=== PATIENT | female | born 1965 | race Caucasian/White ===

== ENCOUNTER → 2017-12-17 09:07 | Outpatient (CLI) | payer OTHER, SELFPAY ==
--- NOTE | 2017-12-17 09:17 | DI.REPORT_ITS ---
SYMPTOM/DIAGNOSIS: F/U LEFT ANKLE FRACTURE LEFT ANKLE: Comparison is made with 03 December 2017. There has been no change in the alignment of the previously noted distal fibular fracture. Ankle mortise remains intact. No talar dome defect is seen. IMPRESSION: Stable appearance of distal fibular fracture.
== END ==
PROVIDERS: PCP Legal Medicine; Visit Provider Orthopaedic Surgery
DX: S82.65XD Nondisplaced fracture of lateral malleolus of left fibula, subsequent encounter for closed fracture with routine healing (principal); X50.9XXD Other and unspecified overexertion or strenuous movements or postures, subsequent encounter; W17.2XXD Fall into hole, subsequent encounter; Y93.K9 Activity, other involving animal care
CPT/HCPCS: 73610

== ENCOUNTER 2018-10-18 00:35 | Outpatient (CLI) | payer OTHER, SELFPAY ==
--- NOTE | 2018-10-18 08:50 | DI.MAMMO_ITS ---
SYMPTOM/DIAGNOSIS: SCREENING, Z12.31 MAMMOGRAMS: Mammograms were interpreted according to the usual protocol including computer analysis with CAD system, tomosynthesis and C view imaging. The breasts are heterogeneously dense. No dominant mass or clumped microcalcification is identified in either breast. The current examination is compared with previous examinations including 09/2017 and there has been no gross interval change in appearance in comparison with the previous studies. CONCLUSION: No specific evidence of malignancy at this time. Routine screening examinations are suggested at yearly intervals in this age group according to the ACS/ACR guidelines. Category 1. Breast density, Category C. MQSA ASSESSMENT OF FINDINGS: Negative. Category 1. Patient will receive a letter notifying them of these results. Bi-RADS category C. The breasts are heterogeneously dense, which may obscure small masses.
== END 2018-10-18 00:55 ==
PROVIDERS: PCP Family Medicine; Visit Provider Legal Medicine
DX: Z12.31 Encounter for screening mammogram for malignant neoplasm of breast (principal)
CPT/HCPCS: 77063; 77067

== ENCOUNTER 2018-12-20 07:54 | Outpatient (CLI) | payer OTHER, SELFPAY ==
[2018-12-20 09:26] LABS: ALT 20 U/L (12-78); AST 16 U/L (15-37); Albumin 3.5 g/dL (3.4-5.0); Alkaline Phosphatase 75 U/L (46-116); Anion Gap 8.8 mmol/L (3-11); BUN 17 mg/dL (7-18); Bilirubin, Total 0.4 mg/dL (0.2-1.0); CO2 28.2 mmol/L (21.0-32.0); CREATININE 0.63 mg/dL (0.55-1.02); Calcium 8.3 mg/dL (8.5-10.1); Calculated LDL 200 mg/dL; Chloride 104 mmol/L (98-107); Cholesterol 277 mg/dL (50-200); Glucose 88 mg/dL (70-100); HDL Cholesterol 59 mg/dL (40-60); Sodium 141 mmol/L (136-145); TSH 0.62 uIU/mL (0.36-3.74); Triglyceride 91 mg/dL (30-150)
== END 2018-12-20 08:14 ==
PROVIDERS: PCP Family Medicine; Visit Provider Family Medicine
DX: E78.5 Hyperlipidemia, unspecified (principal); E03.9 Hypothyroidism, unspecified
CPT/HCPCS: 36415; 80053; 80061; 83721; 84443

== ENCOUNTER 2019-05-24 15:05 | Outpatient (CLI) | payer OTHER, SELFPAY ==
--- NOTE | 2019-05-24 12:26 | DI.RAD_ITS ---
EXAM: XR SHOULDER RT COMPLETE 2+V INDICATION: R shoulder pain after fall, M25.511, W19.XXXA. COMPARISON: No exams were available for comparison TECHNIQUE: 2D digital imaging was performed. FINDINGS: No fracture or dislocation is seen. There is minimal spurring at the AC joint and glenoid. A small subchondral cyst is seen in the humeral head. No tendon or joint space calcifications are seen. IMPRESSION: Minimal degenerative changes.
== END 2019-05-24 15:25 ==
PROVIDERS: PCP Family Medicine; Visit Provider Family Medicine
DX: M25.511 Pain in right shoulder (principal); W19.XXXA Unspecified fall, initial encounter; M19.011 Primary osteoarthritis, right shoulder; M85.40 Solitary bone cyst, unspecified site
CPT/HCPCS: 73030

== ENCOUNTER 2020-01-18 09:49 | Outpatient (REF) | payer OTHER, SELFPAY ==
[2020-01-18 08:13] LABS: ALT 22 U/L (14-59); AST 18 U/L (15-37); Albumin 3.7 g/dL (3.4-5.0); Alkaline Phosphatase 83 U/L (46-116); Anion Gap 5.6 mmol/L (3-11); BUN 14 mg/dL (7-18); Bilirubin, Total 0.5 mg/dL (0.2-1.0); CO2 30.4 mmol/L (21.0-32.0); CREATININE 0.69 mg/dL (0.55-1.02); Calcium 8.5 mg/dL (8.5-10.1); Calculated LDL 225 mg/dL (<100); Chloride 101 mmol/L (98-107); Cholesterol 310 mg/dL (<200); Glucose 92 mg/dL (74-106); HDL Cholesterol 59 mg/dL (40-60); Potassium 3.8 mmol/L (3.5-5.1); Sodium 137 mmol/L (136-145); TSH 0.94 uIU/mL (0.36-3.74); Total Protein 7.9 g/dL (6.4-8.2); Triglyceride 134 mg/dL (<150)
== END 2020-01-18 10:09 ==
LOC: LBN 09:49
PROVIDERS: PCP Family Medicine; Visit Provider Family Medicine
DX: Z00.00 Encounter for general adult medical examination without abnormal findings (principal); E03.9 Hypothyroidism, unspecified; E78.00 Pure hypercholesterolemia, unspecified
CPT/HCPCS: 80053; 80061; 84443

== ENCOUNTER 2020-08-16 07:54 | Emergency (ER) | payer OTHER, SELFPAY ==
[2020-08-16] VITALS (17 sets, daily range): BP systolic 102–127; BP diastolic 53–103; PULSE 73–97; RESP 11–24; TEMP 36.4; O2SAT 97–100
--- NOTE | 2020-08-16 08:15 | RT.EKG_ITS ---
APPROVED REPORT Exam: Resting ECG Patient Location: E HR:80 bpm ECG Measurements Heart Rate 80 AXIS SC 173 P 25 QRSd 79 QRS 57 QT 382 T 32 QTc 439 Conclusion Sinus rhythm...normal P axis, V-rate 60- 99
--- NOTE | 2020-08-16 08:15 | DI.RAD_ITS ---
EXAM: XR PORTABLE CHEST AP CLINICAL HISTORY: shortness of breath. TECHNIQUE: 2D digital imaging was performed. COMPARISON: No exams were available for comparison FINDINGS: Heart size is normal. The mediastinum is not widened. Lungs are clear. No infiltrates nor obvious pleural effusions. Chest leads in place IMPRESSION: No acute pulmonary findings on this single AP portable view of the chest. DATA REPOSITORY: RADIATION DOSE DELIVERED: All CT scans at this facility use at least one of these dose optimization techniques: automated exposure control; mA and/or kV adjustment per patient size (includes targeted e xams where dose is matched to clinical indication); or iterative reconstruction.
--- NOTE | 2020-08-16 08:35 | W.ED.GENAD ---
Discharge Plan Disposition Patient Disposition: HOME Condition: Good Discharge Details Clinical Impression: Dyspnea Primary Care Provider: Tadeo Muir ED Provider: Charito Tirado Home Meds and New Rx's Prescriptions: Continued citalopram 40 mg tablet 40 mg PO DAILY Qty: 90 RF: 3 lorazepam 0.5 mg tablet 0.5 mg PO PRN PRN (Reason: acute anxiety) Qty: 30 RF: 3 valacyclovir 500 mg tablet 500 mg PO DAILY Qty: 90 RF: 3 cholecalciferol (vitamin D3) 3,000 unit tablet 5,000 unit PO DAILY RF: 0 loratadine [Claritin Liqui-Gel] 10 MG capsule 10 mg PO PRN PRNRF: 0 estradiol 1 mg tablet 1 mg PO DAILY Qty: 90 RF: 3 levothyroxine 88 mcg tablet 88 mcg PO DAILY Qty: 102 RF: 3 Denavir 1 % cream 1 applic topical Q2H 4 Days Qty: 5 RF: 5 Discharge Instructions Instructions: Dyspnea (ED) Additional Instructions: Follow-up with pcp to schedule stress test at their discretion return earlier with new or worsening complaints isolate until the results of your covid test returns return earlier with new or worsening complaints Stand Alone Forms: PENDING COVID-19 TESTING, Work Release Discharge Data Discharge Date/Time-TO BE ENTERED AT DEPARTURE: 08/16/20 11:22 Medical Decision Making Troponin negative, D-dimer negative, BNP negative, chest x-ray without acute pathology Patient resting comfortably in room As she has had the pain for greater than 24 hours, I will not check an additional troponin at this time EKG does not show acute pathology Given the threshold to return with new or worsening complaints Heart score of 2, the patient is relatively low risk Discharge home in stable condition with stable vitals, abdomen completely nontender, urinalysis does not show acute pathology. Oxygenation 100% at room air, pulse 78, blood pressure 120/84 at time of discharge Recommend outpatient stress echocardiogram at the discretion of patient's provider Differential Diagnosis Differential Diagnosis: Angina, myocardial infarctions, pulmonary embolism, COVID-19 Medical Records Medical records reviewed: Yes I reviewed the patient's medical records. Lab Data Lab results reviewed: Yes I reviewed the patient's lab results. HPI This 55-year-old female presents with shortness of breath and chest tightness yesterday afternoon. Patient denies prior history of similar symptoms in the past. She denies any fever or chills. She denies any dizziness or weakness. She denies any nausea or vomiting. She denies cough or known sick contacts. She denies any calf pain or swelling, history of coagulopathy General Date/Time Provider Initiated Documentation: 08/16/20 07:56. Related Data Home Medications Medication Instructions Recorded Confirmed loratadine [Claritin Liqui-Gel] 10 mg PO PRN PRN NS 03/22/14 06/06/20 cholecalciferol (vitamin D3) 75 5,000 unit PO DAILY tab 05/23/19 08/16/20 mcg (3,000 unit) tablet estradiol 1 mg tablet 1 mg PO DAILY #90 tab-cap NS 11/16/19 08/16/20 levothyroxine 88 mcg tablet 88 mcg PO DAILY #102 tab 12/26/19 08/16/20 valacyclovir 500 mg tablet 500 mg PO DAILY #90 tab-cap NS 01/17/20 08/16/20 penciclovir 1 % topical cream 1 applic TOPICAL Q2H 4 Days #5 g 04/16/20 08/16/20 citalopram 40 mg tablet 40 mg PO DAILY #90 tab-cap 06/06/20 08/16/20 lorazepam 0.5 mg tablet 0.5 mg PO PRN PRN #30 tab NS 06/06/20 08/16/20 Previous Rx's Medication Instructions Recorded estradiol 1 mg tablet 1 mg PO DAILY #90 tab-cap NS 11/16/19 levothyroxine 88 mcg tablet 88 mcg PO DAILY #102 tab 12/26/19 valacyclovir 500 mg tablet 500 mg PO DAILY #90 tab-cap NS 01/17/20 penciclovir 1 % topical cream 1 applic TOPICAL Q2H 4 Days #5 g 04/16/20 citalopram 40 mg tablet 40 mg PO DAILY #90 tab-cap 06/06/20 lorazepam 0.5 mg tablet 0.5 mg PO PRN PRN #30 tab NS 06/06/20 Allergies Allergy/AdvReac Type Severity Reaction Status Date / Time amoxicillin [Amoxicillin] Allergy Verified 08/16/20 08:08 sulfamethoxazole Allergy Verified 08/16/20 08:08 [From Bactrim] trimethoprim [From Bactrim] Allergy Verified 08/16/20 08:08 codeine AdvReac Intermediate Diarrhea Verified 08/16/20 08:08 General Stated Complaint: Abd Prob GURMEET: 3 Review of Systems Narrative: Review of systems obtained x7 aside from where indicated in HPI [facility] Medical History (Updated 08/16/20 @ 10:26 by ROS Loco) Anxiety with depression Endometriosis 11/21 Hypothyroidism Leukoplakia of gingiva Migraine Pure hypercholesterolemia Shingles 2006 Surgical History (Updated 11/30/18 @ 09:13 by Laurence Lambert) S/P MITRA-BSO 11/21 Family History (Updated 11/30/18 @ 09:16 by Laurence Lambert) Mother , 75 Stroke Diabetes Heart disease Hyperlipidemia Father , AGE 98 Stroke Heart disease Heart attack stents age 90;pacemaker Sister No problems noted. Sister Melanoma Scleroderma Brother , 54 Pancreatic cancer Brother No problems noted. Brother No problems noted. Brother No problems noted. Maternal Grandfather No problems noted. Paternal Grandfather No problems noted. Social History (Updated 01/18/20 @ 17:44 by Maite Antonio) Smoking/Tobacco Use Status: Never Second Hand Exposure: Yes Smoking risk assessment performed?: Yes Alcohol Intake: current Alcohol Intake frequency: a few times a month Alcohol type: beer, wine and hard liquor Drug use: Never Substance use type: does not use Caregiver/Support person: No Household members: spouse Housing: house Do you need help understanding health information?: Never Pets and animals: Yes Pets and animals: dog(s) Sexually active: No Do you think of yourself as: straight/heterosexual Current gender identity: female and decline to answer What is your relationship status?: How often do you talk on the phone with friends or family?: three or more times per week How often do you attend zoroastrian or sabianism services?: decline to answer Do you belong to any clubs or organized social groups?: decline to answer Panel score (0-1 are the most socially isolated patients): 2 What type of physical activity do you participate in: none [place]/Hoahaoism: Hoahaoism Seatbelt use: always Helmet use: Yes Helmet use: always Drive intox or ride w/intox front end driver: No Do you feel safe at home: Yes Do you feel safe in your relationship?: Yes Exam Const General: cooperative, comfortable and no acute distress Neck Neck: no JVD Chest Chest: normal inspection of the chest Resp Effort & Inspection: normal respiratory effort Auscultation: clear to auscultation bilaterally Cardio Rate: regular rate Rhythm: regular rhythm Heart Sounds: no murmurs GI Inspection: normal to inspection Percussion: normal to percussion Other: No tenderness to palpation No CVA tenderness Skin General skin exam: no rashes or lesions noted Neuro General: patient alert and patient oriented x3 Extrem Other: Neurovascularly intact, no calf tenderness or swelling Course Vital Signs Vital signs: Vital Signs Temperature 36.4 C L 08/16/20 08:03 Pulse 94 H 08/16/20 08:03 Respiratory Rate 18 08/16/20 08:03 Blood Pressure 127/103 H 08/16/20 08:03 Pulse Oximetry 99 08/16/20 08:03 Temperature 36.4 C L 08/16/20 08:03 Temperature Source Temporal Artery Scan 08/16/20 08:03 Pulse 94 H 08/16/20 08:03 Respiratory Rate 18 08/16/20 08:03 Respiratory Effort Non-Labored 08/16/20 08:10 Blood Pressure 127/103 H 08/16/20 08:03 Blood Pressure Position Supine 08/16/20 08:03 Pulse Oximetry 99 08/16/20 08:03 Oxygen Delivery Method Room Air 08/16/20 08:03 Oxygen Flow Rate 0 08/16/20 08:03 Pain Level 6 08/16/20 08:03
[2020-08-16 08:45] LABS: Absolute Basophil Count 0.03 10^3/uL (0.0-0.2); Absolute Eosinophil Count 0.17 10^3/uL (0.0-0.7); Absolute Lymphocyte Count 1.08 10^3/uL (1.2-3.4); Absolute Monocyte Count 0.32 10^3/uL (0.1-0.8); Absolute Neutrophil Count 2.79 10^3/uL (1.2-6.7); Basophils % 0.7; Eosinophils % 3.9; HCT 42.6 % (36.0-46.0); HGB 14.1 g/dL (11.2-15.7); Lymphocytes % 24.6; MCH 31.5 pg (27.0-33.0); MCHC 33.1 % (32.0-36.0); MCV 95.3 fL (80-95); MPV 9.7 fL (8.0-11.0); Monocytes % 7.3; Neutrophils % 63.5; Nucleated RBC 0 %; Platelet Count 226 10^3/uL (130-400); RBC 4.47 10^6/uL (3.93-5.22); RDW 12.4 % (11.7-14.6); RDW-SD 44.1 fL; WBC 4.39 10^3/uL (4.4-10.8)
[2020-08-16 09:05] LABS: ALT 18 U/L (14-59); AST 13 U/L (15-37); Albumin 3.7 g/dL (3.4-5.0); Alkaline Phosphatase 76 U/L (46-116); Anion Gap 6.6 mmol/L (3-11); BUN 18 mg/dL (7-18); Bilirubin, Total 0.5 mg/dL (0.2-1.0); CO2 29.4 mmol/L (21.0-32.0); CREATININE 0.8 mg/dL (0.55-1.02); Chloride 104 mmol/L (98-107); Glucose 91 mg/dL (74-106); NT-proBNP 48 pg/mL (<300); Potassium 3.9 mmol/L (3.5-5.1); Sodium 140 mmol/L (136-145); Total Protein 7.9 g/dL (6.4-8.2); Troponin I < 0.05 ng/mL (<0.06)
[2020-08-16 09:23] LABS: D-Dimer 441 ng/mlFEU (<500)
[2020-08-16 09:42] LABS: Bilirubin Negative (Negative); Blood Negative (Negative); Clarity Clear (Clear); Glucose Negative (Negative); Ketones Negative (Negative); Leukocyte Esterase Negative (Negative); Nitrite Negative (Negative); Specific Gravity 1.015 (1.005-1.025); Urobilinogen 0.2 EU/dL (Up TO 0.2)
[2020-08-17 14:35] LABS: COVID-19 RT-PCR UVMMC Result Negative (Negative)
== END 2020-08-16 11:22 | disposition home or self-care (01) ==
PROVIDERS: Emergency Provider Physician Assistant; PCP Family Medicine
DX: R06.00 Dyspnea, unspecified (principal); R07.89 Other chest pain; Z20.822 Contact with and (suspected) exposure to COVID-19
CPT/HCPCS: 80053; 93005; 99284; U0003; 71045; 81003; 83880; 84484; 85025; 85379; 93010; 99283

== ENCOUNTER 2020-11-14 11:18 | Outpatient (CLI) | payer OTHER, SELFPAY ==
--- NOTE | 2020-11-14 11:00 | DI.RAD_ITS ---
Exam(s) XR ANKLE LT COMPLETE EXAM: XR ANKLE LT COMPLETE CLINICAL HISTORY: Pain, rolled ankle, previous closed nondisplaced fracture, S82.65XD. TECHNIQUE: 2D digital imaging was performed. COMPARISON: CR LEFT ANKLE COMPLETE from 12/17/2017 FINDINGS: The oblique fracture site in the distal fibula appears healed. No displacement. No widening of the mortise. Bone density is normal. On the AP view there is a small calcification measuring 2 x 1.5 millimeters adjacent to the inner asp ect of the lateral malleolus, not evident on the prior study. This may be an avulsion injury but the re is no overlying soft tissue swelling. Therefore possibly an accessory ossicle. No degenerative changes in the ankle and subtalar joints evident. No osseous tarsal coalition eviden t. Moderate size inferior calcaneal spur is noted. There is no calcification in the plantar fascia. IMPRESSION: DATA REPOSITORY: RADIATION DOSE DELIVERED:
== END 2020-11-14 11:38 ==
PROVIDERS: PCP Nurse Practitioner Family; Visit Provider Nurse Practitioner Family
DX: S82.65XD Nondisplaced fracture of lateral malleolus of left fibula, subsequent encounter for closed fracture with routine healing (principal); X58.XXXD Exposure to other specified factors, subsequent encounter
CPT/HCPCS: 73610

== ENCOUNTER 2020-12-21 14:36 | Outpatient (REF) | payer OTHER, SELFPAY ==
[2020-12-21 09:20] LABS: TSH 2.77 uIU/mL (0.36-3.74)
== END 2020-12-21 14:37 | disposition home or self-care (01) ==
LOC: LBN 14:36
PROVIDERS: PCP Nurse Practitioner Family; Visit Provider Nurse Practitioner Family
DX: E03.9 Hypothyroidism, unspecified (principal)
CPT/HCPCS: 84443

== ENCOUNTER 2021-01-22 03:44 | Outpatient (CLI) | payer OTHER, SELFPAY ==
[2021-01-22 10:08] LABS: Source Nasal/Nares
[2021-01-22 13:25] LABS: COVID-19 PCR Negative (Negative)
== END 2021-01-22 03:45 | disposition home or self-care (01) ==
LOC: LBO 03:44
PROVIDERS: PCP Nurse Practitioner Family; Visit Provider Student in an Organized Health Care Education/Training Program
DX: Z20.822 Contact with and (suspected) exposure to COVID-19 (principal); Z01.818 Encounter for other preprocedural examination
CPT/HCPCS: 87635

== ENCOUNTER 2021-01-23 09:49 | Day surgery (SDC) | payer OTHER, SELFPAY ==
[2021-01-23 10:09] VITALS: BP 112/78; PULSE 84; RESP 16; TEMP 36.2; O2SAT 97
[2021-01-23] MEDS: Lactated Ringers 1,000 ML 80 ML IV (10:29)
--- NOTE | 2021-01-23 12:07 | PDOC.DSDIS_ITS ---
Discharge Plan Disposition Patient Disposition: HOME Condition: Good Discharge Details Reason For Visit: Dupuytren's Release R hand Attending Provider: Gerard Cevallos Primary Care Provider: Dean Musa Home Meds and New Rx's Prescriptions: New ibuprofen 600 mg tablet 600 mg PO TID PRN (Reason: pain) Qty: 90 RF: 0 acetaminophen 500 mg capsule 1,000 mg PO Q8H PRN PRNQty: 90 RF: 0 Continued citalopram 40 mg tablet 40 mg PO DAILY Qty: 90 RF: 3 lorazepam 0.5 mg tablet 0.5 mg PO PRN PRN (Reason: acute anxiety) Qty: 30 RF: 3 valacyclovir 500 mg tablet 500 mg PO DAILY Qty: 90 RF: 3 cholecalciferol (vitamin D3) 3,000 unit tablet 5,000 unit PO DAILY RF: 0 loratadine [Claritin Liqui-Gel] 10 MG capsule 10 mg PO PRN PRNRF: 0 Denavir 1 % cream 1 applic topical Q2H 4 Days Qty: 5 RF: 5 estradiol 1 mg tablet 1 mg PO DAILY Qty: 90 RF: 3 levothyroxine 88 mcg tablet 88 mcg PO DAILY Qty: 102 RF: 3 Discharge Instructions Additional Instructions: Dupuytren's Contracture Discharge Instructions Activity: You may use your fingers for light activity. You should limit any excessive motion or forceful gripping until the sutures have been removed. Dressings: You should keep the initial surgical dressing in place for at least 3 days. You may remove your dressings and get the wound wet after 3 days. You should keep the dressings and the wound clean at all times. You may keep the initial dressing in place until your follow-up but keep the wound covered with light gauze until the sutures are removed. Medications: - You should take Tylenol and Ibuprofen around the clock as prescribed or per automotive mechanical engineer's recommendations. Follow-up: 7-10 days for wound check and suture removal. Remove Dressings/Wound Care:: 72 hours Shower/Bathe:: 72 hours Discharge Orders Discharge Orders: Discharge Order (Routine); Ordered 01/23/21 Ordered By: Candido Márquez DS: Diagnosis Discharge Diagnosis (1) Dupuytren's contracture of right hand: Status: Acute
[2021-01-23] MEDS: ceFAZolin 2,000 MG in Normal Saline 100 ML 200 MG IV (13:18)
[2021-01-23] MEDS: Sodium Bicarbonate 50 MEQ/50 ML VIAL (13:27)
[2021-01-23 13:53] VITALS: BP 107/74; PULSE 72; RESP 16; TEMP 36.4; O2SAT 98
--- NOTE | 2021-01-24 06:24 | ROE_ITS ---
Date of service: 01/23/21 Time of Service: 14:03 Operative Note Operative Note DATE OF PROCEDURE: 01/24/21 PRE-OP DIAGNOSIS: Right little finger Dupuytren's contracture POST-OP DIAGNOSIS: same PROCEDURE: Partial palmar fasciectomy of right palm and little finger SURGEON: Gerard Cevallos ANESTHESIA TYPE: Local By Surgeon Refer to Anesthesia Record ESTIMATED BLOOD LOSS: 5 PATHOLOGY: none sent TOURNIQUET TIME: 0 COMPLICATIONS: None Patient was transported to: same day Patient's condition: stable Indications: I have seen Jo in clinic for symptoms of Dupuytren's contracture primarily involving the little finger. She also has a disease of the ring finger but without any contracture and no significant symptoms. She had greater than 30 degrees of contracture at the PIP joint of the little finger which was interfering with her daily activities. Therefore, I offered partial palmar fasciectomy to remove the diseased cord. I reviewed the risks of the procedure to include, but not limited to, bleeding, infection, pain, stiffness, incomplete release, damage to nerves or vessels, recurrence. Despite these risks, the patient elected to proceed. Findings: There is a magallon cord extending from the palmar region of the MCP joint towards the PIP joint. It was easily identifiable and isolated and then removed. Neurovascular structures were not superficial to it and appear to be deep. No significant bleeding was encountered. Procedure Description: Jo was greeted in the preoperative holding area where the correct side was identified and marked. The consent was reviewed with the patient and signed. All questions were answered. Jo was taken back to the operating room. The patient was placed into the supine position on the operating room table with the right arm on an arm board. All bony prominences were well padded. Prophylactic antibiotics in the form of cefazolin were administered. The right arm was then prepped with Chloraprep and draped in a standard fashion with stockinette and extremity drape. A timeout to confirm correct identity, side and site, procedure, allergies, anesthesia, and medical concerns was performed. The surgical site was marked as a Carroll type incision over the ulnar border of the distal hand and the little finger extending across the MCP joint up to the PIP joint. This was confirmed with palpation to be centered along the diseased tissue. This area was then anesthetized with 1% Lidocaine with epinephrine and buffered with sodium bicarb. The patient tolerated this well and once the anesthetic had setup, the procedure began. The skin was incised sharply. Once the skin was incised blunt dissection was carried through with tenotomy scissor in line with the incision. Retraction was facilitated and blunt dissection carried down to the palpable cord. There were no crossing neurovascular structures identified. Bipolar cautery was utilized to cauterize superficial venous structures. No tourniquet was used. The cord identified gentle dissection was carried along the length of the cord. This dissection was first carried superficially pain close attention to any crossing neurovascular structures which were not encountered. I then used blunt diss ection to elevate tissues from the deep surface of the cord such as able to place a Chitina elevator underneath the cord. Once this was possible I moved as distal as possible and transected the cord. Immediately there was improvement with the finger motion. There is some remnant bands deep to this which were once again carefully dissected away. This cord was then held and followed proximally. He continued slightly deep but also still on the ulnar side of the little finger ray. This was then transected and disease tissue removed. At this point the finger had passively 2 to 3 degrees of hyperextension. Jo was able demonstrate active extension lacking about 5 degrees of terminal extension of the PIP joint, both improved from the preoperative setting. Given the improvement with the motion I did not perform any capsular release of the PIP joint. The neurovascular bundle was appreciated deep to the cord which was removed. The wound was then irrigated and the skin was closed with a 4-0 Nylon. This was dressed with gauze and a Conform dressing. The patient tolerated the procedure well and was returned to the Same Day Surgery area in a stable condition suffering no known complication.
== END 2021-01-23 14:08 | disposition home or self-care (01) ==
PROVIDERS: PCP Nurse Practitioner Family; Visit Provider Student in an Organized Health Care Education/Training Program
PROC: (CPT 26123; principal; 2021-01-23 12:45)
DX: M72.0 Palmar fascial fibromatosis [Dupuytren] (principal)
CPT/HCPCS: 26123; J0690

== ENCOUNTER 2021-02-27 03:38 | Outpatient (CLI) | payer OTHER, SELFPAY ==
[2021-02-27 19:10] LABS: COVID-19 RT-PCR UVMMC Result Negative (Negative)
== END 2021-02-27 03:39 | disposition home or self-care (01) ==
LOC: LBO 03:38
PROVIDERS: PCP Nurse Practitioner Family; Visit Provider Nurse Practitioner Family
DX: Z20.822 Contact with and (suspected) exposure to COVID-19 (principal)
CPT/HCPCS: U0003

== ENCOUNTER 2021-03-13 02:33 | Outpatient (CLI) | payer OTHER, SELFPAY ==
--- NOTE | 2021-03-13 08:30 | DI.MAMMO_ITS ---
Exam(s) MAMMO SCREENING EXAM: MAMMO SCREENING CLINICAL HISTORY: screening,Z12.39. TECHNIQUE: Bilateral full field digital CC and MLO mammographic images were obtained with 3D tomosyn thesis and utilizing computer aided detection (CAD). COMPARISON: Prior mammograms dating back to 2012, the most recent being October 2018. FINDINGS: Fibroglandular tissue pattern is again noted be moderately dense. No new obvious focal findings in the right breast. In the left breast there is a 3 x 4 millimeter asymmetric density-possible nodule slightly medial of center, approximately 2.5 cm in from the nipple on the CC view. No malignant-appearing microcalcification groups is region or elsewhere in either breast. There is no significant architectural distortion nor skin thickening-retraction. IMPRESSION: Moderately dense fibroglandular tissue. No radiographic evidence of malignancy in the right breast. Possible left breast nodule as described above. Spot compression views and ultrasound recommended. BI-RADS Category 0 - Assessment Incomplete: Need additional imaging evaluation Breast Density - Category C - Heterogeneously dense Breast density Category C or D implies that the patient has dense breast tissue. Dense breast tissue can make it harder to find cancer on a mammogram. Dense breast tissue is also associated with an incr eased risk of breast cancer. This information about the result of the mammogram report was provided to the patient to raise their awareness. Use this report when you speak with the patient about their risks for breast cancer, which includes their family history. At that time, you may recommend additional screening tests (Ultrasoun d or MRI) as these tests may add significant information. A negative radiographic report should not delay biopsy if a dominant or clinically suspicious mass is present. Up to ten percent of cancers are not identified on mammography. A negative report may reinforce clinical impression. Adenosis and dense breasts may obscure an underlying neoplasm. False positive reports average 6 to 10%. Patient will receive a letter notifying them of these results.
== END 2021-03-13 02:53 ==
PROVIDERS: PCP Nurse Practitioner Family; Visit Provider Nurse Practitioner Family
DX: Z12.31 Encounter for screening mammogram for malignant neoplasm of breast (principal); R92.8 Other abnormal and inconclusive findings on diagnostic imaging of breast
CPT/HCPCS: 77063; 77067

== ENCOUNTER 2021-04-03 01:00 | Outpatient (CLI) | payer OTHER, SELFPAY ==
--- NOTE | 2021-04-03 08:30 | DI.MAMMO_ITS ---
Exam(s) MG MAMMO SCREEN CALL BACK UNI US BREAST LT COMPLETE EXAM: MG MAMMO SCREEN CALL BACK UNI CLINICAL HISTORY: ASYMMETRIC DENSITY POSSIBLE NODULE LT BREAST TECHNIQUE: Mammograms were interpreted according to the usual protocol including computer analysis w ith CAD system, tomosynthesis and C-view imaging. COMPARISON: FINDINGS: Additional mammographic views of the left breast and left breast ultrasound were obtained to evaluate questionable area of nodularity seen in the retroareolar portion of the left breast on recent mammog maria luz. Additional mammographic views fail to show a discrete mass. Breast ultrasound shows no evidenc e of mass or cyst in the retroareolar portion of the breast. IMPRESSION: No specific evidence of malignancy at this time. Follow-up unilateral left breast mammogram recommen ded in 6 months. BI-RADS Category 3 - 6 month - Probably Benign Finding: Recommend follow-up mammography in 6 months Breast Density - Category C - Heterogeneously dense
== END 2021-04-03 01:20 ==
PROVIDERS: PCP Nurse Practitioner Family; Visit Provider Nurse Practitioner Family
DX: Z12.31 Encounter for screening mammogram for malignant neoplasm of breast (principal); R92.8 Other abnormal and inconclusive findings on diagnostic imaging of breast; N64.59 Other signs and symptoms in breast
CPT/HCPCS: 76642; 77063; 77067

== ENCOUNTER → 2021-11-22 00:12 | Outpatient (CLI) | payer OTHER, SELFPAY ==
--- NOTE | 2021-11-22 09:00 | DI.MAMMO_ITS ---
Exam(s) MG MAMMO DIAGNOSTIC UNI EXAM: MG MAMMO DIAGNOSTIC UNI CLINICAL HISTORY: f/u abnormal mammo, r92.8. TECHNIQUE: Craniocaudal and mediolateral oblique Full Field Digital Mammography views of the left br east with Computer Aided Diagnosis followed by Tomosynthesis. COMPARISON: MG Screening Bilat Mammo from 03/31/2014 MG Screening Bilat Mammo from 10/09/2016 MG Screening Bilat Mammo from 10/13/2017 MG MG mammo screening from 10/18/2018 MG MG MAMMO SCREEN CALL BACK UNI from 04/03/2021 US US BREAST LT COMPLETE from 04/03/2021 FINDINGS: Mammography/Tomosynthesis: Masses/Architectural Distortion: None seen. Microcalcifictions: No suspicious pleomorphic-type are seen. Skin Thickening/Nipple Retraction: None. IMPRESSION: 1. No evidence of malignancy is noted. 2. Unless there is more urgent need, bilateral screening mammography is recommended in 6 months. BI-RADS Category 1 - Negative Breast Density - Category C - Heterogeneously dense Breast density category C or D implies that the patient has dense breast tissue. Dense breast tissue is very common and is not abnormal but dense breast tissue can make it harder to find cancer on a ma mmogram. Also, dense breast tissue may increase their breast cancer risk. This information about the result of the mammogram report was provided to the patient to raise their awareness. Use this report when you speak with the patient about their risks for breast cancer, which includes their family hist ory. At that time, you may recommend for more screening tests (Ultrasound or MRI) as they might be us eful based on their risk. A negative radiographic report should not delay biopsy if a dominant or clinically suspicious mass is present. Up to ten percent of cancers are not identified on mammography. A negative report may reinforce clinical impression. Adenosis and dense breasts may obscure an underlying neoplasm. False positive reports average 6 to 10%. Patient will receive a letter notifying them of these results.
== END ==
PROVIDERS: PCP Nurse Practitioner Family; Visit Provider Nurse Practitioner Family
DX: R92.8 Other abnormal and inconclusive findings on diagnostic imaging of breast (principal)
CPT/HCPCS: 77061; 77065; G0279

== ENCOUNTER 2022-01-01 09:47 | Outpatient (REF) | payer OTHER, SELFPAY ==
[2022-01-01 10:27] LABS: Calculated LDL 193 mg/dL (<100); Cholesterol 269 mg/dL (<200); HDL Cholesterol 59 mg/dL (40-60); Triglyceride 85 mg/dL (<150)
[2022-01-01 10:31] LABS: Hemoglobin A1C 5.7 % (<5.7)
[2022-01-02 09:38] LABS: Lab Add On Test DONE
[2022-01-02 09:59] LABS: TSH (W/Ref FT4) 0.43 uIU/mL (0.36-3.74)
== END 2022-01-01 09:48 | disposition home or self-care (01) ==
LOC: LBN 09:47
PROVIDERS: PCP Nurse Practitioner Family; Visit Provider Nurse Practitioner Family
DX: Z13.1 Encounter for screening for diabetes mellitus (principal); Z13.220 Encounter for screening for lipoid disorders
CPT/HCPCS: 80061; 83036; 84443

== ENCOUNTER 2022-04-03 10:55 | Day surgery (SDC) | payer OTHER, SELFPAY ==
--- NOTE | 2022-04-02 16:03 | W.PM.DSUDISC ---
Date of service: 04/02/22 Time of Service: 13:51 Discharge Plan Disposition Patient Disposition: HOME Condition: Good Condition: Good Discharge Details Reason For Visit: Esophagogastroduodenoscopy Attending Provider: Luis Merrill Primary Care Provider: Dean Musa Home Meds and New Rx's Prescriptions: No Action red yeast rice 600 mg capsule 600 mg PO DAILY Qty: 90 3RF Rx Instructions: give with meal/snack cholecalciferol (vitamin D3) 3,000 unit tablet 5,000 unit PO DAILY Claritin Liqui-Gel 10 MG capsule 10 mg PO PRN PRN citalopram 40 mg tablet 40 mg PO DAILY Qty: 90 3RF estradiol 1 mg tablet 1 mg PO DAILY Qty: 90 3RF levothyroxine 88 mcg tablet 88 mcg PO DAILY Qty: 102 3RF Rx Instructions: 2 tabs on Sundays lorazepam 0.5 mg tablet 0.5 mg PO DAILY PRN (Reason: acute anxiety) Qty: 30 3RF valacyclovir 500 mg tablet 500 mg PO DAILY Qty: 90 0RF famotidine 20 mg tablet 20 mg PO BID Qty: 180 0RF ibuprofen 600 mg tablet 600 mg PO TID PRN (Reason: pain) Qty: 90 0RF acetaminophen 500 mg capsule 1,000 mg PO Q8H PRN PRNQty: 90 0RF Denavir 1 % cream 1 applic topical Q2H PRN Discharge Instructions Instructions: Gastritis (GEN) Additional Instructions: 1. If tolerated, consume a soft, low fiber diet for 1-2 days. [address] Do not drive, drink alcohol, operate machinery, make critical decisions, or do activities that require coordination or balance for 24 hours. 3. You may experience a sore throat for 24 to 48 hours. You may use throat lozenges or gargle with warm salt water to relieve the discomfort. 4. Because air was put into your stomach during the procedure, you may experience some belching. 5. Go directly to the emergency room if you notice any of the following: Develop chills (warm to touch), or if you have a thermometer and your temperature is above 101 Difficulty breathing or difficultly swallowing Persistent vomiting Severe abdominal pain, other than gas cramps Severe chest pain Black, tarry stools Any bleeding ? exceeding one tablespoon 6. Call your physician if the site where your intravenous was started becomes red, swollen, painful, and warm to touch. 7. Your physician has reviewed your pre-procedure medications. Please continue to take those medications as previously ordered. You will be given specific information/education regarding any changes to your medications before leaving. Activity:: Activity as Tolerated Diet:: As Tolerated DS: Diagnosis Discharge Diagnosis (1) Gastritis: Status: Acute Asessment and Plan: Keep taking the famitodine I will let you know the results of the biopsies
--- NOTE | 2022-04-02 16:05 | W.PM.ENDDOP ---
Date of service: 04/03/22 Time of Service: 13:53 Endoscopy Report DATE OF PROCEDURE: 04/03/22 PRE-OP DIAGNOSIS: Dysphagia POST-OP DIAGNOSIS: other (Gastritis) PROCEDURE: EGD SURGEON: Luis Merrill ANESTHESIA TYPE: General:No Airway ESTIMATED BLOOD LOSS: 10 PATHOLOGY: other (Gastric antrum, gastric polyp, gastric body) COMPLICATIONS: None DISPOSITION: same day INDICATIONS: Ceferino is a 57-year-old woman with coughing and a globus sensation when swallowing. PROCEDURE START TIME: 12:54 PROCEDURE END TIME: 13:05 FINDINGS: Mild antral gastritis, single gastric polyp, small area of gastric scarring PROCEDURE DESCRIPTION: After the initiation of monitored anesthetic care, and with the assistance of a bite block, I advanced a standard gastroscope through the mouth past the hypopharynx and into the esophagus.? Under the direct vision of the scope, I advanced down the esophagus into the stomach.? Once I entered the stomach, I performed a brief inspection, followed by retroflexion towards the gastric cardia.? This appeared normal.? After that, I gently advanced the scope around the incisura angularis and examined the pylorus.? There was some pre-pyloric antral gastritis.? Next, I advanced the scope through the pylorus into the duodenum.? The mucosa was pink and healthy appearing.? There were no abnormalities.? I was able to visualize bile draining into the duodenum through the ampulla Vater. ?Next, I began retracting the endoscope.? I brought the camera back into the stomach, I performed biopsies of the antral gastritis. I then carefully examined the rest of the gastric body and cardia. There was a single gastric polyp. Using cold forceps, I performed a polypectomy. There was no significant bleeding. Several centimeters adjacent to this, there was a small area of pale mucosa. The border was irregular. It had the appearance of scar tissue. I performed biopsies of this..? I then gently desufflated some of the stomach, and withdrew the endoscope into the distal esophagus. The Z-line appeared normal at 38 cm. ?Finally, I withdrew the scope along the length of the esophagus taking great care to examine the entirety of the mucosa.? I did not appreciate any abnormalities.
[2022-04-03 11:27] VITALS: BP 125/88; PULSE 79; RESP 16; TEMP 35.8; O2SAT 97
[2022-04-03] MEDS: Lactated Ringers 1,000 ML 80 ML IV (11:40)
--- NOTE | 2022-04-03 11:47 | W.ANESPRE ---
General Info Date of Service Date Performed: 04/03/22 Height: 5 ft 3 in Weight: 70.6 kg Body Mass Index (BMI): 27.6 Surgical Procedure: Operation Date: 04/03/22 12:05 Proposed Procedure Side Surgeon p Gastroscopy Luis Merrill MD Meds Allergies and Home Medications Allergies Allergy/AdvReac Type Severity Reaction Status Date / Time Sulfa (Sulfonamide Allergy Unknown Verified 04/03/22 11:22 Antibiotics) amoxicillin [Amoxicillin] Allergy Diarrhea Verified 04/03/22 11:22 sulfamethoxazole Allergy Diarrhea Verified 04/03/22 11:22 [From Bactrim] trimethoprim [From Bactrim] Allergy Diarrhea Verified 04/03/22 11:22 codeine AdvReac Intermediate Diarrhea Verified 04/03/22 11:22 Home Medication Medication Instructions Recorded Claritin Liqui-Gel 10 mg capsule 10 mg PO PRN PRN 03/22/14 (loratadine) cholecalciferol (vitamin D3) 75 5,000 unit PO DAILY 05/23/19 mcg (3,000 unit) tablet acetaminophen 500 mg capsule 1,000 mg PO Q8H PRN PRN #90 caps 01/23/21 ibuprofen 600 mg tablet 600 mg PO TID PRN pain #90 tabs 01/23/21 red yeast rice 600 mg capsule 600 mg PO DAILY #90 caps 01/30/21 citalopram 40 mg tablet 40 mg PO DAILY #90 tab-caps 07/25/21 estradiol 1 mg tablet 1 mg PO DAILY #90 tab-caps 12/03/21 levothyroxine 88 mcg tablet 88 mcg PO DAILY #102 tabs 01/01/22 lorazepam 0.5 mg tablet 0.5 mg PO DAILY PRN acute anxiety 01/27/22 #30 tabs valacyclovir 500 mg tablet 500 mg PO DAILY #90 tab-caps 02/18/22 famotidine 20 mg tablet 20 mg PO BID #180 tabs 03/27/22 penciclovir 1 % topical cream 1 applic topical Q2H PRN 04/01/22 (Denavir) Current Visit Medications: Current Medications Generic Name Dose Route Start Last Admin Trade Name Freq PRN Reason Stop Dose Admin Ringer's Solution 1,000 mls @ 80 mls/hr 04/03/22 06:00 04/03/22 11:40 IV 05/02/22 23:59 80 mls/hr INFUSION AYAD Administration IV Miscellaneous Supplies 1 each 04/03/22 06:00 Iv Access IV 05/02/22 23:59 DIRECTED AYAD Sodium Chloride 0 ml 04/03/22 06:00 Normal Saline Flush 10 Ml Syr IV 05/02/22 23:59 PRN PRN Sodium Chloride 0 ml 04/03/22 06:00 Normal Saline 10 Ml Vial IJ 05/02/22 23:59 DIRECTED PRN Sterile Water 0 ml 04/03/22 06:00 Water,Injection,Sterile 10 Ml Vial IJ 05/02/22 23:59 DIRECTED PRN PFSH Active Problems Active Problems: Problem Status Onset Code 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 Closed nondisplaced fracture of lateral malleolus of left fibula with routine healing (11/20/17) Endometriosis 11/21 Migraine Pure hypercholesterolemia Shingles 2006 Symptomatic varicose veins Injected and they are gone now. Surgical History Surgical History History of colonoscopy History of esophagogastroduodenoscopy (EGD) S/P MITRA-BSO 11/21 Tobacco Smoking/Tobacco Use Status: Never Passive smoking exposure: No Second hand exposure: No Alcohol Alcohol Intake: current Alcohol intake frequency: holidays/special occasions only Alcohol type: beer Substance Use Substance use: Never Substance use type: does not use Vital Signs and Lab Results Vital Signs Most Recent Vital Signs in EMR: Most Recent Vital Signs Temp Pulse Resp BP Pulse Ox 35.8 C L 79 16 125/88 97 04/03/22 11:27 04/03/22 11:27 04/03/22 11:27 04/03/22 11:27 04/03/22 11:27 Lab Results Blood Type / Crossmatch: No Data to Display Complete Blood Count: No Data to Display Complete Metabolic Panel: No Data to Display Liver Function Panel: No Data to Display Coagulation Panel: No Data to Display Cardiac Panel: No Data to Display Arterial Blood Gas: No Data to Display Venous Blood Gas: No Data to Display Pancreas Panel: No Data to Display Thyroid Panel: No Data to Display Infectious Disease: No Data to Display Blood Cultures: No Data to Display Toxicology Panel: No Data to Display Anesthesia Assessment and Plan Anesthesia History Personal History: No History of Anesthesia Complications Family History: No Family History of Anesthesia Complications Exercise Tolerance Exercise Tolerance: Metabolic Equivalents>4 Pertinent Negatives Pertinent Negatives: No Symptoms of GERD, No Major Cardiovascular Symptoms or Complaints and No Major Pulmonary Symptoms or Complaints Cardiac & Pulmonary Exam Cardiac Exam: Normal S1/S2 Heart Sounds Pulmonary Exam: Clear Bilateral Breath Sounds Implantable Cardiac Device Does patient have a Pacemaker or an ICD?: No Airway Exam Known Difficult Airway: No Mallampati Class: 2 Mouth Opening: Normal (> 3cm) Thyromental Distance: Greater than 3 cm Neck Range of Motion: Full ROM Neck Circumference: Normal Teeth Condition: Normal Dentition ASA Classification ASA Score: ASA 2 Emergency Case?: No NPO Status NPO Status: NPO Clears >2 hours, Solids >8 hours Anesthesia Plan Resuscitation Status: Full Code Anesthesia Technique: General Anesthesia Airway Planned: Natural Airway Monitors Used: Standard Monitors
[2022-04-03 12:02] VITALS: BMI 27.6
--- NOTE | 2022-04-03 12:57 | STOM_PTH ---
PATIENT: Jo Pang LOC: [facility] U#:[id number] AGE/SX: 57/F ROOM: RE04/03/[address]: Luis Merrill MD : 1965 BED: DIS: 04/03/2022 SPEC #: [id number] RECD: 04/03/22 17:20 STATUS: [facility] #: [id number] ARLETTE: 04/03/22 12:[address]: Luis Merrill DEPT: Surgical Specimen RECD BY: Charito Arriaga ENTERED: 04/03/22 17:21 SP TYPE: STOMACH OTHR DR: Dean Musa, [employer] Tissues: 1 - STOMACH BIOPSY 2 - STOMACH BIOPSY 3 - STOMACH BIOPSY Procedures: GROSS AND MICRO LEVEL 4 IMMUNOPEROXIDASE STAIN Comments: [id number]
[2022-04-03 13:17] VITALS: BP 96/67; PULSE 75; RESP 18; TEMP 36.2; O2SAT 96
--- NOTE | 2022-04-03 13:21 | W.ANESPOSTOP ---
Postoperative Evaluation Date, Time and Location Date Performed: 04/03/22 Time Performed: 13:21 Patient Location: Day Surgery Unit Vital Signs Most Recent Imported Vital Signs: Most Recent Vital Signs Temp Pulse Resp BP Pulse Ox 36.2 C L 75 18 96/67 L 96 04/03/22 13:17 04/03/22 13:17 04/03/22 13:17 04/03/22 13:17 04/03/22 13:17 Pain Score Most Recent Pain Score: Most Recent Pain Score Pain Level 0 04/03/22 13:17 Assessment Mental Status: Awake (Alert & Oriented to Patient Baseline) Airway and Respiratory Function: Patent airway with normal (patient baseline) respiratory exam Cardiovascular Function: Hemodynamically Stable Hydration Status: Adequately Hydrated Nausea & Vomiting: No Nausea or Vomiting Pain: Pt. Denies Any Pain Peripheral Nerve Block: Patient did not receive a nerve block
[2022-04-03 13:50] VITALS: BP 114/66; PULSE 70; RESP 15; TEMP 36.2; O2SAT 98
== END 2022-04-03 14:15 | disposition home or self-care (01) ==
PROVIDERS: PCP Nurse Practitioner Family; Visit Provider Surgery
PROC: 0DJ68ZZ Inspection of Stomach, Via Natural or Artificial Opening Endoscopic (ICD-10-PCS; CPT 43235; principal; 2022-04-03 12:00)
DX: K29.70 Gastritis, unspecified, without bleeding (principal); K31.7 Polyp of stomach and duodenum; K31.89 Other diseases of stomach and duodenum
CPT/HCPCS: 43239; 88305; 88361; J2704

== ENCOUNTER 2023-06-01 07:51 | Outpatient (REF) | payer OTHER, SELFPAY ==
[2023-06-01 10:03] LABS: Calculated LDL 180 mg/dL (<100); Cholesterol 258 mg/dL (<200); HDL Cholesterol 52 mg/dL (40-60); TSH (W/Ref FT4) 2.09 uIU/mL (0.36-3.74); Triglyceride 133 mg/dL (<150)
== END 2023-06-01 07:52 | disposition home or self-care (01) ==
LOC: LBN 07:51
PROVIDERS: PCP Nurse Practitioner Family; Visit Provider Nurse Practitioner Family
DX: E78.00 Pure hypercholesterolemia, unspecified (principal); E03.9 Hypothyroidism, unspecified
CPT/HCPCS: 80061; 84443

== ENCOUNTER 2023-11-03 05:05 | Outpatient (CLI) | payer OTHER, SELFPAY ==
[2023-11-05 11:33] LABS: Lyme Ab w Rflx to Lyme Confirm Negative (Negative)
[2023-11-06 21:06] LABS: Anaplasma phagocytophilum Negative (Negative); B. miyamotoi PCR Negative (Negative); Babesia divergens/MO-1 Negative (Negative); Babesia duncani Negative (Negative); Babesia microti Negative (Negative); Ehrlichia chaffeensis Negative (Negative); Ehrlichia ewingii/canis Negative (Negative); Ehrlichia muris eauclairensis Negative (Negative)
== END 2023-11-03 05:06 | disposition home or self-care (01) ==
LOC: LBO 05:05
PROVIDERS: PCP Nurse Practitioner Family; Visit Provider Nurse Practitioner Family
DX: M35.3 Polymyalgia rheumatica (principal)
CPT/HCPCS: 36415; 87798; 86618

== ENCOUNTER → 2023-11-16 03:06 | Outpatient (CLI) | payer OTHER, SELFPAY ==
--- NOTE | 2023-11-16 07:45 | DI.DEXA_ITS ---
Exam(s) XR DEXA BONE DENSITY W/WO ISAIAH EXAM: XR DEXA BONE DENSITY W/WO ISAIAH CLINICAL HISTORY: screening for osteoporosis, z13.820 TECHNIQUE: COMPARISON: No exams were available for comparison FINDINGS: Lateral Spine Image: Unremarkable. No compression deformities identified. Left hip: Total T-Score: -0.8 Total Z-Score: 0.1 T- and Z-scores: Within normal limits. Lumbar Spine: Total T-Score: -1.5 Total Z-Score: -0.1 T- and Z-scores: Findings are consistent with osteopenia. There is no evidence of osteoporosis. IMPRESSION: No evidence of osteoporosis.
== END ==
PROVIDERS: PCP Nurse Practitioner Family; Visit Provider Nurse Practitioner Family
DX: Z13.820 Encounter for screening for osteoporosis (principal)
CPT/HCPCS: 77080

== ENCOUNTER 2024-04-22 07:47 | Outpatient (REF) | payer OTHER, SELFPAY ==
[2024-04-22 08:33] LABS: Hemoglobin A1C 5.7 % (<5.7)
[2024-04-22 08:47] LABS: Calculated LDL 217 mg/dL (<100); Cholesterol 302 mg/dL (<200); HDL Cholesterol 71 mg/dL (40-60); TSH (W/Ref FT4) 1.22 uIU/mL (0.36-3.74); Triglyceride 74 mg/dL (<150)
== END 2024-04-22 07:48 | disposition home or self-care (01) ==
LOC: LBN 07:47
PROVIDERS: PCP Nurse Practitioner Family; Visit Provider Nurse Practitioner Family
DX: Z13.220 Encounter for screening for lipoid disorders (principal); E78.00 Pure hypercholesterolemia, unspecified; Z13.1 Encounter for screening for diabetes mellitus; E03.8 Other specified hypothyroidism; E06.3 Autoimmune thyroiditis
CPT/HCPCS: 80061; 83036; 84443

== ENCOUNTER 2024-11-22 10:26 | Outpatient (CLI) | payer OTHER, SELFPAY ==
--- NOTE | 2024-11-22 13:03 | DI.RAD_ITS ---
Exam(s) XR LUMBAR SPINE COMPLETE EXAM: XR LUMBAR SPINE COMPLETE CLINICAL HISTORY: atraumatic Low Back Pain M54.50. TECHNIQUE: 2D digital imaging was performed. COMPARISON: CR XR DEXA BONE DENSITY W/WO ISAIAH from 11/16/2023 FINDINGS: Five views No evidence of fracture, listhesis, nor pars interarticularis defects. There is moderate disc space narrowing at L2-3 level. Other disc spaces exhibit relatively preserved height. There is some mild facet arthropathy in the lower lumbar spine. Sacroiliac joints appear age-appropriate. Bone density normal. No osseous lesions. IMPRESSION: There is moderate disc space narrowing at L2-3 level. Other disc spaces exhibit preserved height. DATA REPOSITORY: RADIATION DOSE DELIVERED:
== END 2024-11-22 10:46 ==
LOC: DI 10:27
PROVIDERS: PCP Nurse Practitioner Family; Visit Provider Nurse Practitioner Family
DX: M51.26 Other intervertebral disc displacement, lumbar region (principal)
CPT/HCPCS: 72110

== ENCOUNTER 2024-12-16 01:16 | Outpatient (CLI) | payer OTHER, SELFPAY ==
--- NOTE | 2024-12-16 06:45 | DI.MRI_ITS ---
Exam(s) MR LUMBAR SPINE WO EXAM: MR LUMBAR SPINE WO CLINICAL HISTORY: worsening, LOW BACK PAIN, M54.50. TECHNIQUE: Multiplanar multisequence MRI of the Lumbar spine was performed. COMPARISON: CR XR LUMBAR SPINE COMPLETE from 11/22/2024 FINDINGS: Conus medullaris is at normal level. There is no evidence of conus mass nor subjacent clumping of intrathecal nerve roots to suggest arachnoiditis. The distal thecal sac appears unremarkable.There is no evidence of Tarlov intrasacral cysts nor other significant findings within the sacral canal Bones:There are no fractures nor ominous osseous lesions in the lumbar vertebral bodies and visualized sacrum. There is a small benign intraosseous hemangioma noted in the L2 vertebral body. With respect to the individual levels... T12-L1: Unremarkable L1-2: Normal disc height and signal. No disc herniation nor central canal stenosis.No foraminal stenosis L2-3: There is significant asymmetric disc space narrowing at this level. Amount of disc space narrowing on the right side exceeds the amount of narrowing of the disc space on the left side. There is annular bulging laterally on the left side. This is at the level of the exiting left neural foramen but there does not appear to be significant foraminal stenosis on either side at this level. Also no central canal stenosis. Minimal if any significant facet arthropathy. No listhesis. L3-4: Normal disc height. No disc herniation or central canal stenosis.There is mild left-sided annular bulging at the level the exiting left neural foramen. However, there does not appear to be significant foraminal stenosis on this side nor on the opposite-right side at this level. Facet joints appear unremarkable. L4-5: Normal disc height and signal. There is mild symmetrical annular bulging at this level. There is no disc herniation. There is mild central canal stenosis at this level which is related to developmental short AP dimensions of the pedicles. There is no distinct disc herniation. No significant ligamentum flavum hypertrophy. No facet arthropathy. There is no foraminal stenosis on either side at this level. L5-S1: Normal disc height and signal. No disc herniation or central canal stenosis. There is some degenerative change in the facet joints at this level, foot the more so on the left side. There is no significant foraminal stenosis on either side at this level Soft tissues: paraspinal soft tissues appear unremarkable. IMPRESSION: 1. Mild findings as described individually above. There are no prominent disc herniations nor prominent central spinal canal stenosis. There is mild central canal stenosis at L4-5 level. 2. There is disc space narrowing at L2-3 level with some lateral left annular bulging but no prominent disc herniation. No central canal stenosis at this level and no significant foraminal stenosis on either side at this level. DATA REPOSITORY:
== END 2024-12-16 01:36 ==
PROVIDERS: PCP Nurse Practitioner Family; Visit Provider Nurse Practitioner Family
DX: M51.360 Other intervertebral disc degeneration, lumbar region with discogenic back pain only (principal)
CPT/HCPCS: 72148